=== PATIENT | male | born 1970 | race Caucasian/White ===

== ENCOUNTER 2016-06-05 06:41 | Day surgery (SDC) | payer BC ==
[2016-06-01 11:18] VITALS: BMI 34.9
[~2016-06-05 06:41] MED LIST: LACTATED RINGERS 1,000 ML IV SCH; LIDOCAINE 1% 20 ML VIAL (10MG/ML) FOR IV START INTRADERMA PRN
[2016-06-05 07:11] LABS: Glucose,Whole Blood 133 mg/dL (75-99)
[2016-06-05 07:15] VITALS: RESP 16; TEMP 96.1
[2016-06-05] MEDS ORDERED: LIDOCAINE 1% 20 ML VIAL (10MG/ML) FOR IV START INTRADERMA ONE (07:15)
[2016-06-05] MEDS ORDERED: PROPOFOL 10 MG/ML 20 ML VIAL IV ONE (07:30)
[2016-06-05] MEDS ORDERED: LIDOCAINE 1% INJ 10MG/ML (20 ML MDV) ONE (07:30)
--- NOTE | 2016-06-05 08:07 | P.GSHP ---
History of Present Illness H&P Date: 06/05/16 Chief Complaint: Screening colonoscopy, history of diverticulitis This a 46-year-old male who presents today for colonoscopy. Patient complaints of diverticulitis. - Constitutional Constitutional: Reports as per HPI Past Medical History Past Medical History: Diabetes Mellitus, GERD/Reflux, Hyperlipidemia, Hypertension, Sleep Apnea/CPAP/BIPAP Additional Past Medical History / Comment(s): Diverticulitis with scar tiissue, peptic ulcers. History of Any Multi-Drug Resistant Organisms: None Reported Past Surgical History: Back Surgery, Bowel Resection, Hernia Repair, Orthopedic Surgery, Tonsillectomy Additional Past Surgical History / Comment(s): Colonoscopy x3, [place] resection. Lumbar fusion with rods/cadaver bone, Rt carpal tunnel.2 ing and 1 umbilical hernia repair. Sinus surg. Past Anesthesia/Blood Transfusion Reactions: No Reported Reaction Past Psychological History: No Psychological Hx Reported Smoking Status: Former smoker Past Alcohol Use History: None Reported Additional Past Alcohol Use History / Comment(s): Smoked for 16 yrs, 1/2 ppd. Quit 2004. Past Drug Use History: None Reported - Past Family History Mother Family Medical History: No Reported History Medications and Allergies Home Medications Medication Instructions Recorded Confirmed Type Allergy Shot 1 applic IM Q7D 06/01/16 06/05/16 History Arthrotec 75 mg PO QAM 06/01/16 06/05/16 History Eszopiclone [Lunesta] 3 mg PO HS 06/01/16 06/05/16 History Loratadine [Claritin] 10 mg PO QAM 06/01/16 History Losartan/Hydrochlorothiazide 1 tab PO QAM 06/01/16 06/05/16 History [Hyzaar 100-25 Tablet] Montelukast [Singulair] 10 mg PO DAILY 06/01/16 06/05/16 History Norvasc 1 tab PO QAM 06/01/16 06/05/16 History Omeprazole/Sodium Bicarbonate 1 tab PO QAM 06/01/16 06/01/16 History [Zegerid 20 mg Capsule] Nidia-Con 1 tab PO QAM 06/01/16 06/01/16 History Zocor 1 tab PO QAM 06/01/16 06/05/16 History sitaGLIPtin PHOSPHATE [Januvia] 50 mg PO QAM 06/01/16 06/05/16 History Omeprazole/Sodium Bicarbonate 20 mg PO DAILY 06/05/16 06/05/16 History [Zegerid 20 mg Capsule] Allergies Allergy/AdvReac Type Severity Reaction Status Date / Time Penicillins Allergy Rash/Hives Verified 06/01/16 10:49 Sulfa (Sulfonamide Allergy Rash/Hives Verified 06/01/16 10:49 Antibiotics) Surgical - Exam Vital Signs Temp Pulse Resp BP Pulse Ox 96.1 F L 96 16 121/78 99 06/05/16 07:13 06/05/16 07:13 06/05/16 07:13 06/05/16 07:13 06/05/16 07:13 - General well developed, no distress - Eyes PERRL - ENT normal pinna - Neck no masses - Respiratory normal expansion - Cardiovascular Rhythm: regular - Abdomen Abdomen: soft, non tender Results - Labs Abnormal Lab Results - Last 24 Hours (Table) 06/05/16 Range/Units 07:09 POC Glucose (mg/dL) 133 H (75-99) mg/dL Assessment and Plan Plan: History Dr. Mcneal We'll perform screening colonoscopy
--- NOTE | 2016-06-05 08:17 | P.OP ---
Date of Procedure: 06/05/16 Preoperative Diagnosis: History of diverticulitis Postoperative Diagnosis: Minimal diverticulosis Procedure(s) Performed: Colonoscopy Anesthesia: MAC Surgeon: Janes Layton Pathology: none sent Condition: stable Disposition: PACU Description of Procedure: The patient's placed on the endoscopy table in the lateral position. He received IV sedation. Digital rectal exam was performed which revealed no abnormalities. The flexible colonoscope was then placed patient anus and passed throughout the entire colon. The ileocecal valve was visualized. The cecum, ascending and transverse colon appeared normal. In the descending colon a few scattered diverticula. The patient a previous sigmoid colectomy. The colovaginal rectal anastomosis was visualized. There is no evidence of any scarring or inflammation. The scope was then brought back the rectum and this appeared normal. Scope was withdrawn for patient.
[2016-06-05 08:38] VITALS: BP 113/73; PULSE 90
== END 2016-06-05 08:47 | disposition home or self-care (01) ==
LOC: ORWHC2ENDO 06:41
PROVIDERS: ATTEND Surgery
DX: K57.30 Diverticulosis of large intestine without perforation or abscess without bleeding (principal); Z98.0 Intestinal bypass and anastomosis status; Z90.49 Acquired absence of other specified parts of digestive tract; E11.9 Type 2 diabetes mellitus without complications; K21.9 Gastro-esophageal reflux disease without esophagitis; E78.5 Hyperlipidemia, unspecified; I10 Essential (primary) hypertension; Z88.0 Allergy status to penicillin; Z88.2 Allergy status to sulfonamides; I25.2 Old myocardial infarction; G47.33 Obstructive sleep apnea (adult) (pediatric); Z99.89 Dependence on other enabling machines and devices; Z79.84 Long term (current) use of oral hypoglycemic drugs; Z79.899 Other long term (current) drug therapy; Z87.891 Personal history of nicotine dependence
CPT/HCPCS: 45378; J2001; J2704; 99153

== ENCOUNTER 2018-01-30 06:37 | Day surgery (SDC) | payer BC ==
[2018-01-25 14:04] VITALS: BMI 33.5
[~2018-01-30 06:37] MED LIST changes: -LIDOCAINE 1% 20 ML VIAL (10MG/ML) FOR IV START INTRADERMA PRN
[2018-01-30 06:58] VITALS: RESP 18; TEMP 98.2
[2018-01-30 07:08] LABS: Glucose,Whole Blood 79 mg/dL (75-99)
[2018-01-30] MEDS ORDERED: LACTATED RINGERS 1,000 ML IV ONE ×2 (07:13)
[2018-01-30] MEDS ORDERED: PROPOFOL 10 MG/ML 20 ML VIAL IV ONE (07:52)
--- NOTE | 2018-01-30 08:02 | P.GSHP ---
History of Present Illness H&P Date: 01/30/18 Chief Complaint: GI bleed This is a 39-year-old male who presents today for colonoscopy. Patient has had with of rectal bleeding. He presents today for colonoscopy. He's had a previous history of low anterior resection for diverticulitis. Past Medical History Past Medical History: Diabetes Mellitus, GERD/Reflux, Hyperlipidemia, Hypertension, Osteoarthritis (OA), Sleep Apnea/CPAP/BIPAP Additional Past Medical History / Comment(s): blood in stool, recently taken off rx for diabetes, Diverticulitis with scar tiissue, peptic ulcers. History of Any Multi-Drug Resistant Organisms: None Reported Past Surgical History: Back Surgery, Bowel Resection, Hernia Repair, Orthopedic Surgery, Tonsillectomy Additional Past Surgical History / Comment(s): Colonoscopy x3, Colon resection. Lumbar fusion with rods/cadaver bone, Rt carpal tunnel. 2 ing and 1 umbilical hernia repair. Sinus surg. Past Anesthesia/Blood Transfusion Reactions: No Reported Reaction Smoking Status: Former smoker - Past Family History Mother Family Medical History: No Reported History Medications and Allergies Home Medications Medication Instructions Recorded Confirmed Type Allergy Shot 1 applic IM Q7D 06/01/16 01/25/18 History Eszopiclone [Lunesta] 3 mg PO HS 06/01/16 01/25/18 History Loratadine [Claritin] 10 mg PO QAM 06/01/16 01/25/18 History Losartan/Hydrochlorothiazide 1 tab PO QAM 06/01/16 01/25/18 History [Hyzaar 100-25 Tablet] Montelukast [Singulair] 10 mg PO DAILY 06/01/16 01/25/18 History Omeprazole/Sodium Bicarbonate 20 mg PO DAILY 06/05/16 01/25/18 History [Zegerid 20 mg Capsule] Diclofenac Sodium/Misoprostol 1 each PO DAILY 01/25/18 01/25/18 History [Arthrotec 75 mg-200 Mcg Tab] Meloxicam [Mobic] 15 mg PO DAILY 01/25/18 01/25/18 History Norvasc 1 tab PO DAILY 01/25/18 01/25/18 History Simvastatin 1 tab PO DAILY 01/25/18 01/25/18 History Allergies Allergy/AdvReac Type Severity Reaction Status Date / Time levofloxacin [From Levaquin] Allergy Rash/Hives Verified 01/25/18 13:51 Penicillins Allergy Rash/Hives Verified 01/25/18 13:51 Sulfa (Sulfonamide Allergy Rash/Hives Verified 01/25/18 13:51 Antibiotics) Surgical - Exam Vital Signs Temp Pulse Resp BP Pulse Ox 98.2 F 94 18 107/67 94 L 01/30/18 06:57 01/30/18 06:57 01/30/18 06:57 01/30/18 06:57 01/30/18 06:57 - General well developed, well nourished, no distress - Eyes PERRL - ENT normal pinna - Neck no masses - Respiratory normal expansion - Cardiovascular Rhythm: regular - Abdomen Abdomen: soft, non tender Assessment and Plan Assessment: GI bleed. We'll perform colonoscopy.
--- NOTE | 2018-01-30 08:13 | P.OP ---
Date of Procedure: 01/30/18 Preoperative Diagnosis: GI bleed Postoperative Diagnosis: Mild internal and external hemorrhoids No evidence of colonic bleeding Procedure(s) Performed: Colonoscopy Anesthesia: MAC Surgeon: Janes Layton Pathology: none sent Condition: stable Disposition: PACU Description of Procedure: Patient's placed on the endoscopy table in the lateral position. He received IV sedation. Digital rectal exam was performed which some mild internal and external hemorrhoids. The prostate was symmetric without nodules.. The flexible colonoscope was then placed patient anus and passed throughout the entire colon. The ileocecal valve was visualized. The cecum, ascending and transverse colon appeared normal. In the descending colon there was a few scattered diverticula. The patient had a previous sigmoid resection. The colorectal anastomosis visualized. This was without evidence of inflammation. Scope was then brought back the rectum and this appeared normal. Scope was withdrawn from the anus and there is some minimal internal hemorrhoids
[2018-01-30 08:39] VITALS: BP 120/82; PULSE 90
== END 2018-01-30 08:59 | disposition home or self-care (01) ==
LOC: ORWHC2ENDO 06:37
PROVIDERS: ATTEND Surgery
DX: K57.31 Diverticulosis of large intestine without perforation or abscess with bleeding (principal); K64.8 Other hemorrhoids; K64.4 Residual hemorrhoidal skin tags; Z98.0 Intestinal bypass and anastomosis status; Z90.49 Acquired absence of other specified parts of digestive tract; Z87.19 Personal history of other diseases of the digestive system; E11.9 Type 2 diabetes mellitus without complications; K21.9 Gastro-esophageal reflux disease without esophagitis; E78.5 Hyperlipidemia, unspecified; I10 Essential (primary) hypertension; M19.90 Unspecified osteoarthritis, unspecified site; G47.33 Obstructive sleep apnea (adult) (pediatric); Z99.89 Dependence on other enabling machines and devices; Z79.1 Long term (current) use of non-steroidal anti-inflammatories (NSAID); Z79.899 Other long term (current) drug therapy; Z88.1 Allergy status to other antibiotic agents; Z88.0 Allergy status to penicillin; Z88.2 Allergy status to sulfonamides; Z98.1 Arthrodesis status; Z87.11 Personal history of peptic ulcer disease; Z87.891 Personal history of nicotine dependence
CPT/HCPCS: 45378; J2704

== ENCOUNTER 2022-08-01 05:52 | Day surgery (SDC) | payer BC, OTHER ==
[2022-07-25 16:34] VITALS: BMI 32.0
[~2022-08-01 05:52] MED LIST changes: +ACETAMINOPHEN TAB 500 MG TAB PO PRN; +HEPARIN SODIUM,PORCINE/PF 5,000 UNIT/0.5 ML SYRINGE SQ PRN; -LACTATED RINGERS 1,000 ML IV SCH
[2022-08-01] MEDS ORDERED: LACTATED RINGERS 1,000 ML IV SCH (05:55)
[2022-08-01] MEDS ORDERED: LIDOCAINE 1% (10MG/ML) FOR IV START INTRADERMA PRN (05:55)
[2022-08-01] MEDS ORDERED: HYDROmorphone 0.5 MG/0.5 ML SYRINGE IVP PRN (05:55)
[2022-08-01] MEDS ORDERED: DEXAMETHASONE SOD PHOSPHATE 4 MG/ML 1 ML VIAL IV ONE (05:55)
[2022-08-01] MEDS ORDERED: ONDANSETRON 4 MG/2 ML VIAL IVP ONE (05:55)
[2022-08-01] MEDS ORDERED: SCOPOLAMINE 1 MG/72 HR PATCH TRANSDERM ONE (05:55)
[2022-08-01 06:30] VITALS: TEMP 98.5
[2022-08-01 06:46] LABS: Glucose,Whole Blood 105 mg/dL (70-110)
[2022-08-01] MEDS ORDERED: MIDAZOLAM 2 MG/2 ML VIAL IVP ONE (07:15)
[2022-08-01] MEDS ORDERED: fentaNYL (PF) 50 MCG/1 ML VIAL IVP ONE (07:15)
[2022-08-01] MEDS ORDERED: BUPIVACAIN-EPI 0.25%-1:200,000 30 ML VIAL SQ ONE ×2 (07:16→08:05)
[2022-08-01] MEDS ORDERED: NEOSTIGMINE 1 MG/ML 10 ML VIAL ONE (07:45)
[2022-08-01] MEDS ORDERED: LIDOCAINE 2% INJ 20 MG/ML (2 ML VIAL) ONE (07:45)
[2022-08-01] MEDS ORDERED: PROPOFOL 10 MG/ML 20 ML VIAL IV ONE (07:45)
[2022-08-01] MEDS ORDERED: SODIUM CHLORIDE 0.9% (PF) 10 ML VIAL ONE (07:45)
[2022-08-01] MEDS ORDERED: KETOROLAC 15 MG/ML 1 ML VIAL ONE (07:45)
[2022-08-01] MEDS ORDERED: ROCURONIUM 10 MG/ML (5 ML VIAL) IV ONE (07:45)
[2022-08-01] MEDS ORDERED: KETAMINE 10 MG/ML 20 ML VIAL ONE (07:45)
[2022-08-01] MEDS ORDERED: GLYCOPYRROLATE 0.2 MG/ML 2 ML VIAL ONE (07:45)
[2022-08-01] MEDS ORDERED: MIDAZOLAM 2 MG/2 ML VIAL ONE (07:45)
[2022-08-01] MEDS ORDERED: ROPIVACAINE 5 MG/ML 30 ML VIAL ONE (07:45)
[2022-08-01] MEDS ORDERED: fentaNYL (PF) 50 MCG/ML 2 ML AMP ONE (07:45)
[2022-08-01] MEDS ORDERED: SUCCINYLCHOLINE CHLORIDE 200 MG/10 ML VIAL IV ONE (07:45)
[2022-08-01] MEDS ORDERED: LACTATED RINGERS 1,000 ML IV ONE ×2 (08:20→10:05)
--- NOTE | 2022-08-01 10:09 | P.ANPRN ---
Procedure Note - Anesthesia - Nerve Block Performed Bilateral Erector Spinae Single Time Out Performed: Yes ([id number]) Date of Procedure: 08/01/22 Procedure Start Time: 07:16 Procedure Stop Time: 07:21 Location of Patient: PreOp Indication: Acute Post-Operative Pain, Requested by Surgeon Specifically requested for management of pain by DrWilliams: Janes Layton Sedation Type: Sedate with meaningful contact maintained Preparation: Sterile Prep Position: Prone Catheter: None Needle Types: Pajunk Needle Gauge: 21 Ultrasound used to visualize needle placement: Yes Ultrasound used to observe medication spread: Yes Injectate: 0.5% Ropivacaine (see comment for volume) (15cc+10cc nacl pf each side) Blood Aspirated: No Pain Paresthesia on Injection Noted: No Resistance on Injection: Normal Image Stored and Saved: Yes Events: Uneventful and Well Tolerated
[2022-08-01 11:09] VITALS: RESP 16
[2022-08-01 11:16] LABS: Glucose,Whole Blood 182 mg/dL (70-110)
--- NOTE | 2022-08-01 11:17 | P.OP ---
Date of Procedure: 08/01/22 Preoperative Diagnosis: Recurrent left inguinal hernia Postoperative Diagnosis: Recurrent left inguinal hernia Procedure(s) Performed: Laparoscopic robotic-assisted repair of recurrent left inguinal hernia Anesthesia: SARA Surgeon: Janes Layton Estimated Blood Loss (ml): 5 Pathology: none sent Condition: stable Disposition: PACU Description of Procedure: MThe patient's placed on the operating table in the supine position. The patient received general anesthesia. The patient's abdomen was prepped and draped in usual sterile fashion. The skin was anesthetized 1% local Xylocaine at the incision sites. Using an 11 blade a skin incision was made at the umbilicus. The fascia was grasped with a [place] and then the peritoneal cavity was entered with the Veress needle. Position of the Veress needle was confirmed with a positive drop test. After adequate insufflation a 5 mm trocar was placed into the peritoneal cavity. The Laparoscope was placed the peritoneal cavity. And a robotic 8 mm trocar was placed in the right lateral position and then another 8 mm robotic trochars placed in the left lateral position. The original 5 mm trocar was exchanged for a 12 mm trocar. A four-quadrant transversus abdominis block was performed with 1% local Xy locaine. The patient was placed in reverse Trendelenburg and then the patient was docked to the robot. Next the peritoneum over top of the hernia was incised and then using blunt and sharp dissection and electrocautery the hernia sac was dissected free from the floor of the inguinal canal. The hernia sac was completely reduced into the peritoneal cavity. And then using the Pro reticle printer mesh the hernia was repaired. The peritoneum was then sutured with 20V lock suture. The patient was then undocked the robot. The needle was withdrawn from the peritoneal cavity. The umbilical trocar site was closed with 0 Ethibond suture. The skin was closed interrupted 3-0 Monocryl suture. Dermabond dressing was applied. Patient was sent to recovery in stable condition.
[2022-08-01 11:35] VITALS: BP 120/71; PULSE 93
== END 2022-08-01 12:15 | disposition home or self-care (01) ==
LOC: OR 05:52
PROVIDERS: ATTEND Surgery
DX: K40.91 Unilateral inguinal hernia, without obstruction or gangrene, recurrent (principal); G89.18 Other acute postprocedural pain; I10 Essential (primary) hypertension; E78.5 Hyperlipidemia, unspecified; E11.9 Type 2 diabetes mellitus without complications; K21.9 Gastro-esophageal reflux disease without esophagitis; G47.33 Obstructive sleep apnea (adult) (pediatric); Z90.89 Acquired absence of other organs; Z98.890 Other specified postprocedural states; Z88.2 Allergy status to sulfonamides; Z88.0 Allergy status to penicillin; Z79.899 Other long term (current) drug therapy
CPT/HCPCS: 64461; 86900; 86901; 86850; 49651; C1781; J2250; J0330; J1100; J2710; J0690; J2405; J3010 ×2; J2795; J1885; J2704; J1644; J2001

== ENCOUNTER → 2023-01-11 | Outpatient (CLI) | payer OTHER ==
--- NOTE | 2023-01-11 13:57 | MR ---
EXAMINATION TYPE: MR shoulder LT wo con DATE OF EXAM: 01/11/2023 1:34 PM COMPARISON: NONE HISTORY: Left shoulder pain both anterior and posterior TECHNIQUE: Multiplanar multispin echo imaging of the left shoulder was performed. FINDINGS: Rotator cuff : There is thickening and heterogeneity of the supraspinatus tendon with focal increased signal noted at the critical zone compatible with a partial intrasubstance tear. No evidence for ful l-thickness tear at this time. Infraspinatus and subscapularis components appear to be intact and unr emarkable at this time. Bursa: No bursal effusion or thickening is seen. Musculature: There is no muscular tear, contusion, or atrophy. Acromioclavicular joint : Moderate AC joint arthropathy with subacromial spurring resulting in modera te impingement. Osseous structures : There are no fractures or regions of abnormal bone marrow signal intensity. Long biceps tendon : The biceps tendon is normally situated within the bicipital groove. No complete or partial biceps tendon tear is present. Glenohumeral Joint fluid : There is no glenohumeral joint effusion. Cartilage and Bone : No focal hyaline cartilage defects are noted. No Hill-Sachs, reverse Hill-Sachs, or bony Bankart lesions are seen. Labrum : There are no SLAP or soft tissue Bankart lesions. No paralabral cysts are seen. OTHER FINDINGS : Small subcoracoid tingling cyst measuring 1.1 cm. IMPRESSION: 1. There is thickening and heterogeneity of the supraspinatus tendon with focal increased signal note d at the critical zone compatible with a partial intrasubstance tear. No evidence for full-thickness tear at this time. 2. Moderate impingement. 3. Subcoracoid ganglion cysts.
== END | disposition home or self-care (01) ==
LOC: RADMRIMAIN 12:24
PROVIDERS: ATTEND Orthopaedic Surgery Hand Surgery
DX: M19.012 Primary osteoarthritis, left shoulder (principal); M25.812 Other specified joint disorders, left shoulder; M67.412 Ganglion, left shoulder; M75.21 Bicipital tendinitis, right shoulder

== ENCOUNTER → 2024-07-23 | Day surgery (SDC) | payer OTHER ==
--- NOTE | 2024-07-29 10:17 | MM ---
Reason for Exam: Post Procedure Mammogram. Last screening mammogram was performed less than 1 month ago. Prior Study Comparison: 07/04/2024 Bilateral MG 3D diag mammo w/cad [facility], [facility]. Tissue Density: Right: The breasts are heterogeneously dense, which may obscure small masses. Pathology Description: Location: 9 o'clock. Needle Type: Mammotone Cores: 3 Gauge: 13 The 9:00 hypoechoic circumscribed nodule measuring 6 mm is identified and targeted for biopsy. The adjacent intramammary lymph node is also seen. The procedure of ultrasound guided core biopsy was explained to the patient. Benefits, alternatives, and risks were discussed. An informed consent was then obtained. The patient was placed in supine positioning for imaging and for the procedure. The overlying skin was prepped and draped in usual sterile fashion. Lidocaine buffered with bicarbonate was used as anesthetic into the skin and subcutaneous tissue up to area of concern in the right breast. The biopsy target became much less defined following the anesthetic injection. This favors a benign etiology. Under ultrasound guidance, a 13-gauge vacuum-assisted mammotome Elite biopsy gun was used to obtain 4 core samples. Following this, a coil clip was left at the site of biopsy. The patient tolerated the procedure well without any immediate complication. The patient was kept in the radiology department for short stay after the procedure and then discharged home in stable condition. Postprocedure mammogram: The patient was transferred to mammography for physician ordered post procedure mammogram for clip placement verification. Postprocedure mammogram shows coil clip in the region of dense tissue. The previous mammographic focal asymmetry is not as well seen but the clip is more posteriorly located. The known 10:00 intramammary lymph node is also not as well seen. If benign results, six-month follow-up mammogram can be performed. IMPRESSION: Successful, uncomplicated ultrasound guided core biopsy of a subtle nodule within the right breast. At the area became less defined following the anesthetic injection, benign etiology is favored. Full pathology results to follow. If benign results, six-month follow-up mammogram can be performed as a precautionary measure. [facility], , 07/23/2024 1:52 PMThe 9:00 hypoechoic circumscribed nodule measuring 6 mm is identified and targeted for biopsy. The adjacent intramammary lymph node is also seen. The procedure of ultrasound guided core biopsy was explained to the patient. Benefits, alternatives, and risks were discussed. An informed consent was then obtained. The patient was placed in supine positioning for imaging and for the procedure. The overlying skin was prepped and draped in usual sterile fashion. Lidocaine buffered with bicarbonate was used as anesthetic into the skin and subcutaneous tissue up to area of concern in the right breast. The biopsy target became much less defined following the anesthetic injection. This favors a benign etiology. Under ultrasound guidance, a 13-gauge vacuum-assisted mammotome Elite biopsy gun was used to obtain 4 core samples. Following this, a coil clip was left at the site of biopsy. The patient tolerated the procedure well without any immediate complication. The patient was kept in the radiology department for short stay after the procedure and then discharged home in stable condition. Postprocedure mammogram: The patient was transferred to mammography for physician ordered post procedure mammogram for clip placement verification. Postprocedure mammogram shows coil clip in the region of dense tissue. The previous mammographic focal asymmetry is not as well seen but the clip is more posteriorly located. The known 10:00 intramammary lymph node is also not as well seen. If benign results, six-month follow-up mammogram can be performed. IMPRESSION: Successful, uncomplicated ultrasound guided core biopsy of a subtle nodule within the right breast. As the area became less defined following the anesthetic injection, a benign etiology is favored. Full pathology results to follow. If benign results, six-month follow-up mammogram can be performed as a precautionary measure. [facility], Workstation: [id number], 07/23/2024 1:53 PM. Pathology Results: Result: Benign. Pathology and radiology were reviewed. Findings are concordant. RIGHT BREAST, ULTRASOUND GUIDED NEEDLE CORE BIOPSY: Lobulated benign adipose tissue suggestive of lipoma. Breast elements are not identified. Overall Assessment: Benign Assessment: MG diagnostic mammo RT wo CAD - Right: Benign, BI-RAD 2. Management: Diagnostic Mammogram of the right breast in 6 months. Electronically signed and approved by: Enzo Amanda M.D. Radiologist
== END ==
LOC: RADUSWWP 10:04
PROVIDERS: ATTEND Internal Medicine Endocrinology, Diabetes & Metabolism
DX: N64.89 Other specified disorders of breast (principal)
CPT/HCPCS: 88305; 77065; 19083; A4648